=== PATIENT | female | born 1960 | race Caucasian/White ===

== ENCOUNTER 2018-03-24 15:19 | Outpatient (CLI) | payer OTHER | END 2018-03-24 15:20 | disposition home or self-care (01) | LOC: BICMAMMO 15:19 | PROVIDERS: ATTEND Family Medicine | DX: Z12.31 Encounter for screening mammogram for malignant neoplasm of breast (principal); M81.0 Age-related osteoporosis without current pathological fracture | CPT/HCPCS: 77063; 77067; 77080 ==

== ENCOUNTER 2021-09-22 14:28 | Outpatient (CLI) | payer OTHER | END 2021-09-22 14:29 | disposition home or self-care (01) | LOC: BICMAMMO 14:28 | PROVIDERS: ATTEND Family Medicine | DX: Z12.31 Encounter for screening mammogram for malignant neoplasm of breast (principal) | CPT/HCPCS: 77063; 77067 ==

== ENCOUNTER 2023-03-28 13:01 | Outpatient (CLI) | payer MEDICARE, OTHER | END 2023-03-28 13:02 | disposition home or self-care (01) | LOC: BICMAMMO 13:01 | PROVIDERS: ATTEND Family Medicine | DX: Z12.31 Encounter for screening mammogram for malignant neoplasm of breast (principal); Z13.820 Encounter for screening for osteoporosis; M81.0 Age-related osteoporosis without current pathological fracture; Z78.0 Asymptomatic menopausal state | CPT/HCPCS: 77063; 77067; 77080 ==

== ENCOUNTER 2024-03-26 07:57 | Day surgery (SDC) | payer MEDICARE, OTHER ==
[2024-03-25 12:26] VITALS: BMI 22.3
[2024-03-26] MEDS ORDERED: PROPOFOL 80 ML ONE (11:02)
[2024-03-26] MEDS ORDERED: Glycopyrrolate 0.2 MG/ML 5 ML SYRINGE ONE (11:07)
== END 2024-03-26 12:40 | disposition home or self-care (01) ==
LOC: SDC 07:57
PROVIDERS: ATTEND Internal Medicine Gastroenterology
PROC: 0DJD8ZZ Inspection of Lower Intestinal Tract, Via Natural or Artificial Opening Endoscopic (ICD-10-PCS; principal; 2024-03-26)
DX: Z12.11 Encounter for screening for malignant neoplasm of colon (principal); K57.30 Diverticulosis of large intestine without perforation or abscess without bleeding; K64.9 Unspecified hemorrhoids; M81.0 Age-related osteoporosis without current pathological fracture; D64.9 Anemia, unspecified; J45.909 Unspecified asthma, uncomplicated; F41.9 Anxiety disorder, unspecified; Z88.6 Allergy status to analgesic agent; Z88.8 Allergy status to other drugs, medicaments and biological substances; Z87.891 Personal history of nicotine dependence; Z80.0 Family history of malignant neoplasm of digestive organs; Z86.010 Personal history of colon polyps
CPT/HCPCS: J2704

== ENCOUNTER 2024-08-05 10:34 | Outpatient (CLI) | payer MEDICARE, OTHER | END 2024-08-05 10:35 | disposition home or self-care (01) | LOC: SCSMRI 10:34 | PROVIDERS: ATTEND Family Medicine | DX: M84.361D Stress fracture, right tibia, subsequent encounter for fracture with routine healing (principal) | CPT/HCPCS: 36415; 82565 ==

== ENCOUNTER 2024-08-28 10:53 | Outpatient (CLI) | payer MEDICARE, OTHER | END 2024-08-28 10:54 | disposition home or self-care (01) | LOC: BICCT 10:53 | PROVIDERS: ATTEND Family Medicine | DX: Z12.2 Encounter for screening for malignant neoplasm of respiratory organs (principal); Z87.891 Personal history of nicotine dependence | CPT/HCPCS: 71271 ==